=== PATIENT | male | born 1965 | race Caucasian/White ===

== ENCOUNTER 2023-11-09 07:05 | Day surgery (SDC) | payer OTHER ==
[2023-11-02 12:51] VITALS: BMI 30.2
[2023-11-09] MEDS ORDERED: SUCCINYLCHOLINE CHLORIDE 200 MG/10 ML SYRINGE ONE (08:18)
[2023-11-09] MEDS ORDERED: MIDAZOLAM HCL 2 MG/2 ML SINGLE DOSE VIAL ONE (08:18)
[2023-11-09] MEDS ORDERED: PROPOFOL 40 ML ONE (08:18)
[2023-11-09] MEDS ORDERED: ONDANSETRON 4 MG/2 ML VIAL IVPUSH PRN (08:27)
[2023-11-09] MEDS ORDERED: oxyCODONE HCL 5 MG TABLET PO PRN (08:27)
[2023-11-09] MEDS ORDERED: LACTATED RINGERS SOLUTION 1,000 ML IV SCH (08:30)
[2023-11-09] MEDS ORDERED: PROPOFOL 20 ML ONE (09:01)
[2023-11-09] MEDS ORDERED: FENTANYL CITRATE/PF 50 MCG/ML VIAL ONE ×2 (10:45→10:52)
[2023-11-09] MEDS ORDERED: oxyCODONE HCL 5 MG TABLET ONE (11:26)
[2023-11-09] MEDS ORDERED: oxyCODONE HCL 5 MG TABLET PO ONE (11:30)
[2023-11-09 11:31] VITALS: PULSE 60; RESP 16; TEMP 96.8
[2023-11-09 13:16] VITALS: BP 134/74
== END 2023-11-09 12:15 | disposition home or self-care (01) ==
LOC: FASU 07:05
PROVIDERS: ATTEND Orthopaedic Surgery Hand Surgery
PROC: 0RGU04Z Fusion of Right Metacarpophalangeal Joint with Internal Fixation Device, Open Approach (ICD-10-PCS; 2023-11-09)
PROC: 0RGU07Z Fusion of Right Metacarpophalangeal Joint with Autologous Tissue Substitute, Open Approach (ICD-10-PCS; principal; 2023-11-09 08:58)
DX: M19.041 Primary osteoarthritis, right hand (principal)
CPT/HCPCS: 73130-TC-RT-FY; 94760; C1713